=== PATIENT | female | born 1950 ===

== ENCOUNTER 2017-11-05 17:19 | Emergency (ER) | payer MEDICAID, OTHER ==
[2017-11-05 17:30] VITALS: O2SAT 98
[2017-11-05 18:06] LABS: SQUAMOUS EPITHIAL 4 /hpf (0-5); URINE BACTERIA OCC (<OCC); URINE BILIRUBIN NEGATIVE (NEGATIVE); URINE BLOOD NEGATIVE (NEGATIVE); URINE CLARITY Hazy (Clear); URINE COLOR Yellow (YELLOW); URINE GLUCOSE (UA) NORMAL (Normal); URINE LEUKOCYTE ESTERASE 1+ Leu/uL (Negative); URINE PROTEIN NEGATIVE (NEGATIVE); URINE UROBILINOGEN NORMAL mg/dL (0.2-1.0)
--- NOTE | 2017-11-05 18:31 | C.PDOC ---
History Of Present Illness 67 y/o female presents to the ED with burning dysuria and frequency for 1 week. Patient has history of frequent UTIs; Last UTI was 5 months ago. Symptoms are associated with suprapubic pain. Denies any fever or chills. PMD: Dr. Gilberto Hudson Time Seen by Provider: 11/05/17 17:36 Chief Complaint (Nursing): Female Genitourinary History Per: Patient History/Exam Limitations: no limitations Onset/Duration Of Symptoms: Days (x 1 week) Current Symptoms Are (Timing): Still Present Associated Symptoms: Urinary Symptoms Past Medical History Reviewed: Historical Data, Nursing Documentation, Vital Signs Vital Signs: Last Vital Signs Temp 98.3 F 11/05/17 17:25 Pulse 90 11/05/17 17:25 Resp 17 11/05/17 17:25 BP 140/83 11/05/17 17:25 Pulse Ox 98 11/05/17 18:32 - Medical History PMH: Asthma (chronic), Diverticulitis, HTN, Hyperthyroidism Surgical History: Cholecystectomy Other Surgeries: Splenectomy, Hysterectomy Family History: States: No Known Family Hx - Social History Hx Tobacco Use: No Hx Alcohol Use: Yes Hx Substance Use: No - Immunization History Hx Influenza Vaccination: No Hx Pneumococcal Vaccination: No Review Of Systems Except As Marked, All Systems Reviewed And Found Negative. Constitutional: Negative for: Fever, Chills Gastrointestinal: Positive for: Abdominal Pain Genitourinary: Positive for: Dysuria, Frequency. Negative for: Incontinence, Hematuria Musculoskeletal: Negative for: Back Pain Physical Exam - Physical Exam Appears: Non-toxic, No Acute Distress Skin: Normal Color, Warm, Dry Head: Atraumatic, Normacephalic Eye(s): bilateral: Normal Inspection, PERRL, EOMI Nose: Normal Oral Mucosa: Moist Neck: Normal ROM, Supple Chest: Symmetrical, No Tenderness Cardiovascular: Rhythm Regular, No Murmur Respiratory: Normal Breath Sounds, No Accessory Muscle Use Gastrointestinal/Abdominal: Soft, Tenderness (Mild suprapubic tenderness), No Guarding, No Rebound Back: Normal Inspection, No CVA Tenderness Extremity: Bilateral: Atraumatic, Normal ROM Neurological/Psych: Oriented x3, Normal Speech ED Course And Treatment - Laboratory Results Lab Interpretation: Abnormal (5WBC's) O2 Sat by Pulse Oximetry: 98 (RA) Pulse Ox Interpretation: Normal Progress Note: bactrim DS PO and pyridium PO Reevaluation Time: 18:41 Reassessment Condition: Improved Medical Decision Making Medical Decision Making: Impression: Dysuria and suprapubic pain, hx of frequent UTIs Time: 17:38 Initial Plan: * Urinalysis minimal pyuria (5WBCs) with "recurrent UTI's" concerning for interstitial cystitis, or [facility] pathology pt lost to f/u w [facility]/- asks for referral will treat empirically for UTI x 3 days. Disposition Doctor Will See Patient In The: Office Counseled Patient/Family Regarding: Studies Performed, Diagnosis - Disposition Disposition: HOME/ ROUTINE Disposition Time: 18:43 Condition: GOOD Forms: [employer] ([place]ian) - Clinical Impression Clinical Impression: Cystitis - Scribe Statement The provider has reviewed the documentation as recorded by the Scribe (Susanna Walker) Provider Attestation: All medical record entries made by the Scribe were at my direction and personally dictated by me. I have reviewed the chart and agree that the record accurately reflects my personal performance of the history, physical exam, medical decision making, and the department course for this patient. I have also personally directed, reviewed, and agree with the discharge instructions and disposition.
[2017-11-05] MEDS ORDERED: Tmp-Smz 800 mg-160 mg DS Tab PO STA (18:36)
[2017-11-05] MEDS ORDERED: Tmp-Smz 800 mg-160 mg DS Tab ONE (18:44)
[2017-11-05 19:05] VITALS: BP 126/86; PULSE 78; RESP 18; TEMP 98
== END 2017-11-05 19:05 | disposition home or self-care (01) ==
LOC: C.ER 17:19
DX: N30.90 Cystitis, unspecified without hematuria (principal)

== ENCOUNTER 2018-08-30 09:19 | Emergency (ER) | payer MEDICAID ==
[2018-08-30 09:42] VITALS: O2SAT 97
--- NOTE | 2018-08-30 10:28 | RAD ---
Date of service: 08/30/2018 HISTORY: SOB COMPARISON: No prior. TECHNIQUE: Chest PA and lateral FINDINGS: LUNGS: No active pulmonary disease. PLEURA: No significant pleural effusion identified. No pneumothorax apparent. CARDIOVASCULAR: No aortic atherosclerotic calcification present. Normal cardiac size. No pulmonary vascular congestion. OSSEOUS STRUCTURES: Bilateral chronic rotator cuff insufficiency with superior subluxation of the humeral head, right greater than left. VISUALIZED UPPER ABDOMEN: Normal. OTHER FINDINGS: None. IMPRESSION: No active disease.
[2018-08-30 10:36] LABS: BASO # 0.1 K/uL (0.0-0.2); BASO % 1.3 % (0.0-2.0); EOS # 0.3 K/uL (0.0-0.7); EOS % 3.4 % (0.0-4.0); HEMOGLOBIN 16.4 g/dL (11.0-16.0); LYMPH # 1.7 K/uL (1.0-4.3); LYMPH % 18.3 % (20.0-40.0); MEAN CELL VOLUME 92.6 fL (81.0-99.0); MEAN CORPUSCULAR HEMOGLOBIN 31.8 pg (27.0-31.0); MEAN CORPUSCULAR HGB CONC 34.3 g/dL (33.0-37.0); MEAN PLATELET VOLUME 6.7 fL (7.2-11.7); MONO % 10.8 % (0.0-10.0); NEUT # 6.2 K/uL (1.8-7.0); NEUT % 66.2 % (50.0-75.0); NRBC % 0.1 % (0.0-2.0); RBC 5.17 Mil/uL (3.80-5.20); RED CELL DISTRIBUTION WIDTH 14.7 % (11.5-14.5); WHITE BLOOD COUNT 9.4 K/uL (4.8-10.8)
[2018-08-30 11:01] LABS: ALB/GLOB RATIO 1.3 (1.0-2.1); ALBUMIN 4.8 g/dL (3.5-5.0); ALT/SGPT 15 U/L (9-52); AST/SGOT 28 U/L (14-36); BLOOD UREA NITROGEN 15 mg/dL (7-17); CALCIUM 9.7 mg/dl (8.6-10.4); GFR NON-AFRICAN AMERICAN > 60
[2018-08-30] MEDS ORDERED: Albuterol 0.083% Inhal Sol (2.5 mg/3 mL) UD INH STA (11:12)
[2018-08-30 11:13] LABS: B-TYPE NATRIURETIC PEPTIDE 310 pg/mL (0-900)
[2018-08-30] MEDS ORDERED: Albuterol 0.083% Inhal Sol (2.5 mg/3 mL) UD ONE (11:43)
--- NOTE | 2018-08-30 12:43 | C.PDOC ---
History Of Present Illness 67 y/o female presents to the ED accompanied by daughter for evaluation of cough and congestion for 3 weeks. Patient was seen by PMD and given z-pack with improvement of symptoms for 1 week. For the last week, cough and congestion have recurred. PMHx is significant for asthma. Patient otherwise denies any chest pain, SOB, fevers, vomiting, night sweats, chills, or hx of smoking. Time Seen by Provider: 08/30/18 09:52 Chief Complaint (Nursing): Cough, Cold, Congestion History Per: Patient History/Exam Limitations: no limitations Onset/Duration Of Symptoms: Days Current Symptoms Are (Timing): Still Present Past Medical History Reviewed: Historical Data, Nursing Documentation, Vital Signs Vital Signs: Last Vital Signs Temp 98 F 08/30/18 09:28 Pulse 89 08/30/18 11:27 Resp 28 H 08/30/18 11:27 BP 141/88 08/30/18 11:27 Pulse Ox 97 08/30/18 11:27 - Medical History PMH: Bronchitis (chronic as per family), Depression, Diverticulitis, HTN, Hyperthyroidism Denies: Asthma (chronic; pt and family deny) Surgical History: Cholecystectomy Family History: States: No Known Family Hx - Social History Hx Tobacco Use: No Hx Alcohol Use: Yes Hx Substance Use: No - Immunization History Hx Influenza Vaccination: No Hx Pneumococcal Vaccination: No Review Of Systems Constitutional: Negative for: Fever, Chills Eyes: Negative for: Vision Change ENT: Positive for: Nose Congestion Cardiovascular: Negative for: Chest Pain Respiratory: Positive for: Cough. Negative for: Shortness of Breath Gastrointestinal: Negative for: Nausea, Vomiting Skin: Negative for: Rash Neurological: Negative for: Weakness, Headache, Dizziness Physical Exam - Physical Exam Appears: Non-toxic, No Acute Distress Skin: Normal Color, Warm, Dry Head: Atraumatic, Normacephalic Eye(s): bilateral: Normal Inspection, PERRL, EOMI Nose: Normal Oral Mucosa: Moist Throat: Normal, No Erythema, No Exudate Neck: Normal ROM Chest: Symmetrical Cardiovascular: Rhythm Regular, No Murmur Respiratory: No Accessory Muscle Use, Other (Coarse breath sounds bilaterally) Gastrointestinal/Abdominal: Soft, No Tenderness, No Distention Extremity: Bilateral: Atraumatic, No Pedal Edema, Normal Color And Temperature Neurological/Psych: Oriented x3, Normal Speech ED Course And Treatment - Laboratory Results Result Diagrams: 08/30/18 10:33 08/30/18 10:33 Lab Results: Troponin I < 0.0120 ng/mL (0.00-0.120) 08/30/18 10:33 NT-Pro-B Natriuret Pep 310 pg/mL (0-900) 08/30/18 10:33 Total Bilirubin 1.6 mg/dL (0.2-1.3) H 08/30/18 10:33 AST 28 U/L (14-36) 08/30/18 10:33 ALT 15 U/L (9-52) 08/30/18 10:33 Alkaline Phosphatase 109 U/L (38-126) 08/30/18 10:33 Total Protein 8.7 g/dL (6.3-8.3) H 08/30/18 10:33 Albumin 4.8 g/dL (3.5-5.0) 08/30/18 10:33 Globulin 3.8 gm/dL (2.2-3.9) 08/30/18 10:33 Albumin/Globulin Ratio 1.3 (1.0-2.1) 08/30/18 10:33 ECG: Interpreted By Me, Viewed By Me ECG Rhythm: Sinus Rhythm Interpretation Of ECG: NSR at 83 bpm with normal intervals, left axis deviation, poor R wave progression, no ST or T wave abnormalities O2 Sat by Pulse Oximetry: 97 (RA) Pulse Ox Interpretation: Normal Medical Decision Making Medical Decision Making: Plan: --Blood work w/ cardiac enzymes --Chest x-ray and EKG reviewed --Administered albuterol neb and 125 mg IV solu-medrol Patient reports improvement. Will treat patient for bronchitis with PO Doxycycline Hyclate. Plan is to discharge patient home with inhaler, albuterol nebulizers, antibiotic, and naprosyn for pain. Clinical Impression: Bronchitis Disposition Counseled Patient/Family Regarding: Studies Performed, Diagnosis, Need For Followup, Rx Given - Disposition Referrals: Jolanta Vilchis MD [Staff Provider] - Disposition: HOME/ ROUTINE Disposition Time: 12:41 Condition: STABLE Additional Instructions: follow up with your doctor within 2 days call to make an appointment take medications as prescribed return to ER if symptoms worsens or progress Prescriptions: Albuterol HFA [Ventolin HFA 90 mcg/actuation (8 g)] 2 puff IH [id number] #1 puff Albuterol 0.083% [Albuterol Sulfate 3 Ml] 3 ml IH Q6 PRN #50 neb PRN Reason: Cough And Congestion Doxycycline Hyclate 100 mg PO BID #20 capsule Naproxen [Naprosyn] 500 mg PO BID PRN #16 tab PRN Reason: Pain, Moderate (4-7) Instructions: Acute Bronchitis Forms: Gen Discharge Inst Jordanian, [employer] [facility] (Jordanian), Work Excuse Print Language: PAKISTANI - Clinical Impression Clinical Impression: Bronchitis - Scribe Statement The provider has reviewed the documentation as recorded by the Xochilt Walker Provider Attestation: All medical record entries made by the Xochilt were at my direction and personally dictated by me. I have reviewed the chart and agree that the record accurately reflects my personal performance of the history, physical exam, medical decision making, and the department course for this patient. I have also personally directed, reviewed, and agree with the discharge instructions and disposition.
[2018-08-30 13:06] VITALS: BP 146/70; PULSE 88; RESP 22; TEMP 98.7
== END 2018-08-30 13:06 | disposition home or self-care (01) ==
LOC: C.ER 09:19
DX: J40 Bronchitis, not specified as acute or chronic (principal); I10 Essential (primary) hypertension
CPT/HCPCS: 71046; 80053; 83880; 84484; 85025; 93005; 96374; 99285; J2930